=== PATIENT | female | born 2000 | race Hispanic/Latino ===

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

== ENCOUNTER 2022-02-28 17:55 | Emergency (ER) | payer MEDICAID ==
[2022-02-28] MEDS ORDERED: Ketorolac Tromethamine 30 MG/ML VIAL ONE (19:09)
== END 2022-02-28 19:17 | disposition home or self-care (01) ==
LOC: ERS 17:55
DX: M79.672 Pain in left foot (principal)
CPT/HCPCS: 96372; J1885